=== PATIENT | female | born 1970 | race American Indian/Alaskan Native ===

== ENCOUNTER 2018-06-05 12:31 | Day surgery (SDC) | payer OTHER ==
[2018-06-05] MEDS ORDERED: VERSED ONE (14:13)
--- NOTE | 2018-06-05 14:13 | Anesthesia Day of Surgery ---
Anesthesia Day of Surgery - Day of Surgery Patient Examined: Yes Patient H&P Reviewed: Yes Patient is NPO: Yes
[2018-06-05] MEDS ORDERED: DIPRIVAN 10 MG/ML IV ONE ×2 (14:14)
--- NOTE | 2018-06-05 14:15 | Anesthesia Consultation ---
Anesthesia Consult and Med Hx Date of service: 06/05/18 - Airway Anesthetic Teeth Evaluation: Good ROM Head & Neck: Adequate Mental/Hyoid Distance: Adequate Mallampati Class: Class II Intubation Access Assessment: Probably Good - Pre-Operative Health Status ASA Pre-Surgery Classification: ASA3 Proposed Anesthetic Plan: MAC - Pulmonary Hx Smoking: Yes - Cardiovascular System Hx Coronary Artery Disease: Yes (high cholesterol) - Central Nervous System Hx Neuromuscular Disorder: Yes (osteoarthritis left knee) - Gastrointestinal Hx Gastroesophageal Reflux Disease: Yes - Other Systems Hx Obesity: Yes
--- NOTE | 2018-06-05 14:37 | Operative Report ---
Operative Report Operative Report: Date of procedure: 06/05/2018 Procedure: Colonoscopy with Hot Biopsy Polypectomy. Attending physician: Anam Nicholson MD Composition [employer] Applier: Anam Nicholson MD Indication: Patient is a 48-year-old female who presents for screening colonoscopy. This colonoscopy serves to evaluate patient so that treatment may be directed based on the findings. Consent: Informed consent was obtained after advising the patient and family regarding nature of this procedure, its indications, potential benefits as well as possible complications including but not limited to bleeding perforation and adverse reaction to medication, infection as well as other cardiopulmonary complications. An informed written and verbal consent was then obtained after due opportunity was provided for questions and answers. Monitoring: Patient was monitored continuously with pulse oximetry and electrocardiographic recordings as well as blood pressure recordings. Vital signs remained stable throughout this procedure with no untoward events. Preoperative assessment: Patient was assessed immediately prior to this procedure for capacity to tolerate monitored anesthesia care and moderate sedation as well as general anesthesia. Patient's ASA classification is 2, Mallampati class is 2, Hyomental distance is 3. Instrument: judon video colonoscope Medications: Propofol given intravenously in divided doses. For details please refer to anesthesia records. Description of procedure: Patient was placed in the left lateral decubitus position after achieving sedation, a digital rectal examination was performed following which the colonoscope was introduced into the anal verge and advanced to the cecum which was identified by the cecal valve, the appendiceal orifice, as well as by the cecal strap and direct transillumination. The colonoscope was subsequently withdrawn with careful inspection of all mucosal surfaces. Patient tolerated this procedure well and was subsequently taken to the recovery room. The following findings were noted. Findings: Patient had a diminutive flat polyp in the sigmoid colon which measured 3-5 mm. The polyps was removed by hot biopsy polypectomy. The rest of the colon to the cecum was normal. On the retroflex view at the anal verge, patient had internal hemorrhoids. Impression: Diminutive sigmoid colon polyp status post hot biopsy polypectomy. Internal hemorrhoids. Plan: Follow pathology report. High-fiber diet. Repeat colonoscopy in 5 years if polyp is adenomatous.
--- NOTE | 2018-06-05 14:38 | Discharge Summary ---
Short Stay Discharge Plan Activity: advance as tolerated Weight Bearing Status: Weight Bear as Tolerated Diet: regular Follow up with: PRIMARY CARE, [Primary Care Provider] - 7 Days
[2018-06-05] MEDS ORDERED: WATER FOR IRRIG STERILE IR ONE (14:57)
[2018-06-05] MEDS ORDERED: NACL 0.9% 1000 ML 1,000 ML IV SCH (15:00)
[2018-06-05 15:07] VITALS: BP 126/78
== END 2018-06-05 12:32 | disposition home or self-care (01) ==
LOC: GIO 12:31
PROVIDERS: ATTEND Internal Medicine Gastroenterology
DX: Z12.11 Encounter for screening for malignant neoplasm of colon (principal); K64.8 Other hemorrhoids; K63.5 Polyp of colon; K21.9 Gastro-esophageal reflux disease without esophagitis; E78.00 Pure hypercholesterolemia, unspecified; I25.10 Atherosclerotic heart disease of native coronary artery without angina pectoris; F17.210 Nicotine dependence, cigarettes, uncomplicated; E66.9 Obesity, unspecified; Z68.45 Body mass index [BMI] 70 or greater, adult; Z79.899 Other long term (current) drug therapy; Z88.0 Allergy status to penicillin; Z88.8 Allergy status to other drugs, medicaments and biological substances; Z91.018 Allergy to other foods; Z90.710 Acquired absence of both cervix and uterus; Z72.89 Other problems related to lifestyle; Z90.10 Acquired absence of unspecified breast and nipple; Z98.890 Other specified postprocedural states; Z83.71 Family history of colonic polyps; Z80.0 Family history of malignant neoplasm of digestive organs
CPT/HCPCS: 45384; 88305; J2250; J2704; J7030